=== PATIENT | male | born 1955 ===

== ENCOUNTER 2016-12-12 06:10 | Day surgery (SDC) | payer OTHER ==
[2016-12-12 07:16] VITALS: BMI 26.6
[2016-12-12] MEDS ORDERED: Midazolam 2 MG/2 ML VIAL ONE (07:31)
[2016-12-12] MEDS ORDERED: ePHEDrine 50 mg/ml Inj ONE (07:31)
[2016-12-12] MEDS ORDERED: Labetalol 25mg/5ml Syringe ONE (07:31)
[2016-12-12] MEDS ORDERED: Phenylephrine 10 mg/ml Inj ONE (07:31)
[2016-12-12] MEDS ORDERED: Propofol 10 mg/ml Inj (20 ML) ONE (07:31)
[2016-12-12 09:26] VITALS: TEMP 97.8
[2016-12-12 09:49] VITALS: BP 121/79; PULSE 69; RESP 18; O2SAT 98
== END 2016-12-12 09:35 | disposition home or self-care (01) ==
LOC: C.ENDO 06:10
PROVIDERS: ATTEND Internal Medicine Gastroenterology
DX: Z86.010 Personal history of colon polyps (principal); K57.30 Diverticulosis of large intestine without perforation or abscess without bleeding; D12.4 Benign neoplasm of descending colon
CPT/HCPCS: 45380; 88305; J2001; J2250; J2370; J2704